=== PATIENT | female | born 1965 | race Caucasian/White ===

== ENCOUNTER 2020-11-05 02:02 | Inpatient (IN) | payer MEDICARE, OTHER ==
[2020-11-05] MEDS ORDERED: Acetaminophen 500 MG TAB ONE (02:29)
[2020-11-05] MEDS ORDERED: Boostrix 0.5 ML (Tdap) VIAL ONE (02:29)
[2020-11-05] MEDS ORDERED: HYDROcodone/Acetaminophen 5/325 mg Tablet PO PRN (03:37)
[2020-11-05] MEDS ORDERED: Acetaminophen 325 MG TAB PO PRN (03:37)
--- NOTE | 2020-11-05 03:51 | PDOC.HHP ---
Hospitalist HPI - History of Present Illness Painful swollen right thumb History of Present Illness: 55-year-old woman with a history of insulin-dependent diabetes was transferred from [facility] due to cellulitis and abscess of the right thumb with sepsis. Patient stated he was pricked by a sharp object on a door later developed swelling and redness of the thumb. She was in the emergency department 2 days ago but patient refused admission. Her thumb swelling and pain got worse. She presented to [facility] again and patient was transferred here for thumb abscess and cellulitis with sepsis. Patient was drowsy during my examination in the ED and could not provide much history. Patient noted to have leukocytosis with white cell count up to 21,000 with a left shift and bandemia. Her glucose was initially elevated to the 300s. Patient tachycardic and febrile with a temperature of 100.5. She meets criteria for sepsis. She is admitted for further management. Hospitalist ROS - Review of Systems Other: Except as documented, all other systems reviewed and negative. Hospitalist History - Past Medical History Endocrine: reports: Diabetes - Family History Family History: reports: diabetes mellitus - Social History Alcohol: reports: None Drugs: reports: none - Exam General Appearance: NAD General - other findings: Cachectic Eye: PERRL, anicteric sclera ENT: normocephalic atraumatic, no oropharyngeal lesions, moist mucosa Neck: supple, no JVD Heart: RRR, no murmur, normal peripheral pulses Respiratory: CTAB, no wheezes, no rales Gastrointestinal: soft, non-tender, normal bowel sounds Extremities: no cyanosis, no edema Extremities - other findings: Right thumb swollen, erythematous, abscess noted on the palmar aspect. Neurological: cranial nerve grossly intact, no focal deficits Musculoskeletal: normal tone, normal strength Psychiatric: normal affect, normal behavior, A&O x 3 Hospitalist Results - Labs Lab results: WBC:21.6. Hospitalist H&P A/P - Problem (1) Cellulitis and abscess of finger, unspecified Code(s): L03.019 - CELLULITIS OF UNSPECIFIED FINGER; L02.519 - CUTANEOUS ABSCESS OF UNSPECIFIED HAND Status: Acute (2) Type 2 diabetes mellitus with hyperglycemia Code(s): E11.65 - TYPE 2 DIABETES MELLITUS WITH HYPERGLYCEMIA Status: Acute (3) Sepsis Code(s): A41.9 - SEPSIS, UNSPECIFIED ORGANISM Status: Acute (4) Cachexia Code(s): R64 - CACHEXIA Status: Acute - Plan Plan: Admit patient to the medical floor. Sepsis protocol initiated. Continue IV hydration started in the ED. Wiill treat with IV cefepime and vancomycin. Follow blood cultures. Consult to hand trauma-Dr. Peck ordered. Manage blood sugar with Lantus insulin and insulin sliding scale. Nutritional consult
[2020-11-05 04:46] LABS: #Lymphocytes 2.6 thou/uL (1.20-3.40); #Monocytes 0.8 thou/uL (0.11-0.59); #Neutrophils 13.2 thou/uL (1.40-6.50); %Basophils 0.2 % (0.0-1.0); %Eosinophils 0.1 % (0.0-10.0); %Lymphocytes 15.4 % (21.0-51.0); %Monocytes 4.5 % (0.0-10.0); %Neutrophils 79.7 % (42.0-75.0); Hemoglobin 13.6 g/dL (12.0-16.0); Mean Corpuscular HGB CONC 32.6 g/dL (32.0-36.0); Mean Corpuscular Hemoglobin 32.1 pg (27.0-31.0); Mean Corpuscular Volume 98.3 fL (78.0-98.0); Mean Platelet Volume 6.2 fL (7.4-10.4); Platelet Count 339 thou/uL (130-400); RBC Distribution Width 12.5 % (11.5-14.5); Red Blood Cell (RBC) Count 4.24 mill/uL (4.20-5.40); White Blood Cell (WBC) Count 16.6 thou/uL (4.8-10.8)
[2020-11-05 05:06] LABS: ALT (SGPT) 31 U/L (8-55); AST (SGOT) 34 U/L (5-34); Albumin 2.6 g/dL (3.5-5.0); Alkaline Phosphatase 158 U/L (40-110); Anion Gap 12 mmol/L (10-20); BUN (Urea Nitrogen) 12 mg/dL (9.8-20.1); Bilirubin, Total 0.2 mg/dL (0.2-1.2); Calc. Creatinine Clearance 0 mL/min (70-130); Calcium 7.4 mg/dL (7.8-10.44); Carbon Dioxide 24 mmol/L (22-29); Chloride 99 mmol/L (98-107); Globulin 3.5 g/dL (2.4-3.5); Glucose 268 mg/dL (70-105); Potassium 3.6 mmol/L (3.5-5.1); Protein, Total 6.1 g/dL (6.0-8.3); Sodium 131 mmol/L (136-145)
[2020-11-05] MEDS: Sodium Chloride 0.9% 1,000 ML IV SCH ×3 (06:08→16:56)
[2020-11-05] MEDS ORDERED: Dextrose 50% Abboject 50 ML SYRINGE SLOW IVP PRN (06:29)
[2020-11-05] MEDS ORDERED: Dextrose 5% in Water 1,000 ML IV PRN (06:29)
[2020-11-05] MEDS: Insulin Regular 300 UNITS/3 ML VIAL SC PRN ×3 (06:50→22:35)
[2020-11-05] MEDS ORDERED: Iopamidol-370 76% 500 ML 1 ML ONE (08:35)
--- NOTE | 2020-11-05 09:04 | CT ---
PRELIMINARY REPORT/[facility]/EMERGENCY AFTER HOURS PROCEDURE: EXAM: CT UPPER EXT RT W CON HISTORY: PATIENT TRANSFER FROM ANOTHER FACILITY. WENT TO ED LAST WEEK FOR PAINFUL THUMB, PATIENT DID NOT WANT TO BE ADMITTED. CAME BACK TO ED TODAY WITH SWELLING IN HAND AND THUMB.. ONLY IV ACCESS WAS ON RIGHT SIDE.. STAFF UNABLE TO OBTAIN IV ACCESS ON UNAFFECTED SIDE. COMPARISON: None FINDINGS: No acute displaced fracture. No dislocation. No focal osseous destructive process. Soft tissue swelling about the base of the thumb and thenar eminence. No evidence of abscess formation IMPRESSION: 1. Soft tissue swelling about the base of the thumb and thenar eminence, may be infectious, inflamma tory or posttraumatic in etiology. 2. No evidence of abscess formation. 3. No acute osseous abnormality or focal osseous destructive process. ELECTRONICALLY SIGNED BY: Eleazar Morel MD Nov 05, 2020 3:08:07 AM AMBULATORY CARE COORDINATOR This report is intended for review by the ordering physician only, in accordance of law. If you recei ve this report in error, please call [facility] at [phone]. FINAL REPORT CT RIGHT FOREARM AND HAND WITH IV CONTRAST: I am in agreement with the preliminary report issued by [facility]. POS: AGW
[2020-11-05] MEDS ORDERED: Vancomycin HCl 500 MG in Sodium Chloride 0.9% 100 ML IVPB SCH (12:00)
[2020-11-05] MEDS ORDERED: Lidocaine 1% PF 5 ML VIAL ONE (12:06)
[2020-11-05] MEDS ORDERED: Ondansetron PF 4 MG/2 ML Vial ONE (12:06)
[2020-11-05] MEDS ORDERED: PHENYLEPHRINE-NS 100 MCG/ML 10 ML SYRINGE ONE (12:06)
[2020-11-05] MEDS ORDERED: PROPOFOL 200 MG/20 ML VIAL ONE (12:06)
[2020-11-05] MEDS ORDERED: Dexamethasone 20 MG/5 ML VIAL ONE (12:06)
[2020-11-05] MEDS: Cefepime 2 GM in Sodium Chloride 0.9% 100 ML IVPB SCH ×2 (12:20→22:36)
[2020-11-05] MEDS: Enoxaparin Sodium 30 MG/0.3 ML SYRINGE SC SCH (12:20)
[2020-11-05] MEDS: Morphine 2 MG/ML VIAL SLOW IVP PRN (12:33)
[2020-11-05 12:50] LABS: Hemoglobin A1c Greater than 14.0 % (4.0-6.0)
[2020-11-05] MEDS ORDERED: Bupivacaine 0.25% HCL 30 ML VIAL ONE (13:11)
[2020-11-05] MEDS ORDERED: Fentanyl 100 MCG/2 ML VIAL ONE (13:25)
[2020-11-05] MEDS ORDERED: Promethazine HCl 25 MG/ML VIAL IM PRN ×2 (13:40→15:32)
[2020-11-05] MEDS ORDERED: Meperidine HCl/PF 25 MG/ML VIAL SLOW IVP PRN (13:40)
[2020-11-05] MEDS ORDERED: Ondansetron HCl/PF 4 MG/2 ML Vial IVP PRN ×2 (13:40→15:32)
[2020-11-05] MEDS ORDERED: Promethazine HCl 25 MG/ML VIAL SLOW IVP PRN ×2 (13:40→15:32)
[2020-11-05] MEDS ORDERED: Lidocaine 1% (PF) 30 ML VIAL ONE (14:11)
[2020-11-05] MEDS: Vancomycin HCl 500 MG in Sodium Chloride 0.9% 100 ML IVPB SCH ×2 (15:13→15:23)
[2020-11-05 16:09] LABS: SARS-CoV-2 MS2 Positive; SARS-CoV-2 N Gene Negative; SARS-CoV-2 S Gene Negative; SARS-CoV-2 by NAA Not Detected (NotDetected); SARS-CoV-2 orf1ab Negative
--- NOTE | 2020-11-05 19:37 | CON ---
DATE OF CONSULTATION: 11/05/2020 HISTORY OF PRESENT ILLNESS: The patient is a 55-year-old right-hand dominant female, who I was asked to see for ongoing pain, swelling, and redness in her right hand. She states that the symptoms began over a week ago, she suffered a small injury or laceration on the right thumb. [facility] I was asked to see the patient today for the first time. She denied any fevers, however, reports significant pain and numbness and tingling in the fingers. She also had pain in the right thumb, also in the right small finger, A1 heriberto region in the right wrist. PHYSICAL EXAMINATION: General: The patient appeared to be in bed. She was awake, alert, and oriented x3. She is a very skinny lady and looks somewhat emaciated. EXTREMITIES: Right upper extremity, there was a wet gangrene over the tip of the right thumb with fluctuance and induration. There was erythema extending over the right thumb into the right wrist and forearm area. She was tender to palpation over the right thumb, especially over the A1 heriberto region in the right small finger. She displayed carpal tunnel symptoms as well. IMAGING STUDIES: CT scan that was performed by the ED staff was reviewed by me. ASSESSMENT: Wet gangrene of the right thumb with associated deep space infection involving the right hand and wrist, potentially a horseshoe abscess involving the right small finger in the deep space of Parona. PLAN: I recommended OR for amputation of the right thumb at the level of the IP joint; incision and drainage; and washout and debridement of the right hand; as well as a carpal tunnel release. I discussed all risks and goals associated with the surgery with the patient. The goal of the surgery is to clear the patient's infection, so that she may get better. The risks associated with the surgery include, but are not limited to possible nerve injury, blood vessel injury, tendon injury, need for further surgery, chronic pain, etc. She voiced understanding and agreed to proceed with a right thumb amputation, right carpal tunnel release, incision and drainage, and washout and debridement of the right hand. The patient had already been receiving antibiotics by the medicine team. She may continue the antibiotics as scheduled, broad-spectrum antibiotics postoperatively, and Hand Surgery will follow her closely as well following her surgery today. Job ID: [id number]
[2020-11-05] MEDS: Piperacillin/Tazobactam 3.375 GM in Sodium Chloride 0.9% 100 ML IVPB SCH (20:07)
[2020-11-05] MEDS ORDERED: FLU VACC QS2020-21(6MOS UP)/PF 60 MCG/0.5 ML SYRINGE IM ONE (21:00)
[2020-11-06] MEDS: HYDROcodone/Acetaminophen 5/325 mg Tablet PO PRN ×3 (00:36→20:56)
[2020-11-06] MEDS: Piperacillin/Tazobactam 3.375 GM in Sodium Chloride 0.9% 100 ML IVPB SCH ×5 (00:53→23:33)
[2020-11-06] MEDS: Vancomycin HCl 500 MG in Sodium Chloride 0.9% 100 ML IVPB SCH (02:32)
[2020-11-06 05:57] LABS: Anion Gap 11 mmol/L (10-20); BUN (Urea Nitrogen) 10 mg/dL (9.8-20.1); Calc. Creatinine Clearance 62 mL/min (70-130); Calcium 7.1 mg/dL (7.8-10.44); Carbon Dioxide 25 mmol/L (22-29); Chloride 102 mmol/L (98-107); Glucose 207 mg/dL (70-105); Sodium 135 mmol/L (136-145)
[2020-11-06 05:58] LABS: Band 30 % (5-11); Hemoglobin 11.1 g/dL (12.0-16.0); Hypochromia SLIGHT = 6-15 cells (100X) (0-5/hpf); Lymphocytes 8 % (21-51); MDiff Complete? YES; Mean Corpuscular HGB CONC 33.4 g/dL (32.0-36.0); Mean Corpuscular Hemoglobin 33.1 pg (27.0-31.0); Mean Corpuscular Volume 99.2 fL (78.0-98.0); Mean Platelet Volume 6.1 fL (7.4-10.4); Monocytes 5 % (0-10); Neutrophil 56 % (42-75); Platelet Count 429 thou/uL (130-400); Platelet Morphology Comment Appears Increased; RBC Distribution Width 12.4 % (11.5-14.5); Reactive Lymphocytes 1 % (0-10); Red Blood Cell (RBC) Count 3.35 mill/uL (4.20-5.40); White Blood Cell (WBC) Count 22.2 thou/uL (4.8-10.8)
[2020-11-06 06:01] LABS: Potassium 2.9 mmol/L (3.5-5.1)
--- NOTE | 2020-11-06 06:18 | OP ---
DATE OF PROCEDURE: 11/05/2020 PREOPERATIVE DIAGNOSES: 1. Wet gangrene, right thumb with associated deep space infection. 2. Carpal tunnel syndrome, right hand. POSTOPERATIVE DIAGNOSES: 1. Wet gangrene, right thumb with associated deep space infection. 2. Carpal tunnel syndrome, right hand. PROCEDURE PERFORMED: 1. Amputation, right thumb at the interphalangeal joint. 2. Right open carpal tunnel release. 3. Incision and drainage, washout, and debridement of the right hand and debridement of soft tissue and flexor tenosynovium and flexor tendon. ANESTHESIA: Local and general. TOURNIQUET TIME: 78 minutes. ESTIMATED BLOOD LOSS: Less than 10 mL. FINDINGS: There was wet gangrene in the distal portion of the right thumb. There was thickened tenosynovium involving the flexor tendons within the carpal tunnel. There was pus appreciated within the IP joint of the right thumb and necrotic bone appreciated as well involving mainly the distal phalanx of the right thumb. There was murky fluid appreciated within the flexor tendon sheath of the right small finger. IMPLANTS: Guevara drain and two blue vessel loop drains. SPECIMEN: Culture and sensitivities. CONDITION: Stable. DESCRIPTION OF PROCEDURE: The patient was already given antibiotics by the Medicine team as scheduled. She was brought to the operating room, placed in supine on the operating room table. Time-out was performed. General anesthesia was induced by the anesthesia team. A right upper extremity tourniquet was applied. The right upper extremity was prepped and draped under sterile aseptic conditions. A second time-out was performed. The right upper extremity was exsanguinated by gravity and the tourniquet was inflated to 250 mmHg. Local anesthetic was administered as a digital block to the right thumb and right small finger and skin underlying the right carpal canal and the right volar wrist in the area of the predicted skin incision. My attention was directed to the right thumb first. There was significant wet gangrene and discoloration with black lozano tissue appreciated over the tip of the right thumb and a fishmouth incision was made. Pus was immediately encountered in the soft tissue space and the IP joint space. This was sent for culture and sensitivities and Gram stain. The IP joint was disarticulated and the distal phalanx along with the surrounding soft tissues were sent for specimen. They were sent for acid-fast, fungal, Gram stain, aerobic, anaerobic specimen. There was pus encountered within the thenar space and this was incised and drained as well. I made a small incision in the skin overlying the A1 heriberto of the right small finger. I entered the flexor tendon sheath of right small finger, there was small amount of murky fluid, but no cheryl pus. I did carpal tunnel release. Care was taken throughout the entirety of the case to avoid injury to the nerves, tendons, blood vessels; however, it should be noted that there was significant purulent drainage noted around the digital neurovascular structures of right thumb. I extended carpal tunnel incision in a Pedro's fashion across flexion crease there was some murky fluid. No cheryl pus. There was significant thickening of the tenosynovium overlying flexor tendons, which is debrided. I did a carpal tunnel release and the retinaculum and transverse carpal ligament were released in full thickness. The median nerve appeared to be hyperemic. I irrigated all wounds thoroughly using 3 L of sterile saline and closed over a Speonk drain and vessel loop drains within the flexor tendon sheaths of the right thumb and right small finger. The tourniquet was deflated. All fingers including the right thumb stump returned to good capillary refill. The skin was loosely closed using 4-0 nylon. Xeroform was applied over the wounds along with bulky dressing. The patient was extubated and transported back to recovery area in stable condition. She will remain admitted to the Internal Medicine service. Continue with broad-spectrum coverage, antibiotic coverage of Zosyn and vancomycin would be appropriate, and we can tailor the antibiotics according to the culture results. Hand Surgery will follow the patient closely. I will plan on removing the drains at least 24 hours postop and we will proceed from there. Job ID: [id number]
[2020-11-06] MEDS: Insulin Regular 300 UNITS/3 ML VIAL SC PRN ×4 (06:24→20:51)
[2020-11-06] MEDS: Sodium Chloride 0.9% 1,000 ML IV SCH ×4 (07:37→23:36)
[2020-11-06] MEDS: Potassium Chloride 20 MEQ in Premix Bag 1 BAG IVPB SCH ×2 (07:37→09:12)
[2020-11-06] MEDS: Enoxaparin Sodium 30 MG/0.3 ML SYRINGE SC SCH (07:38)
[2020-11-06] MEDS ORDERED: Insulin Glargine 15 UNITS in Pre-Filled Syringe 1 EACH SC SCH (08:45)
[2020-11-06] MEDS: metFORMIN 500 MG TAB PO SCH ×2 (09:11→20:51)
[2020-11-06] MEDS: Lisinopril 2.5 MG TAB PO SCH (09:14)
[2020-11-06 11:12] VITALS: BMI 13.3
[2020-11-06] MEDS ORDERED: Iopamidol-370 76% 500 ML 1 ML ONE (13:35)
--- NOTE | 2020-11-06 14:36 | CON ---
DATE OF CONSULTATION: 11/06/2020 REASON FOR CONSULTATION: Right thumb infection. HISTORY OF PRESENT ILLNESS: A 55-year-old with history of type 2 diabetes, bipolar disorder, who used to live with her , but they are in the middle of separation process and she is temporarily with her sister in [place], I believe, and has been losing quite a bit of weight. Reportedly her baseline weight was 126 pounds, now she is down to 66 pounds in the course of a few months. She sustained an injury to the right thumb while cleaning a car apparently by closing the door over her finger a few days ago. She was therefore seen 3 days before in the emergency room and left against medical advice prior to receiving antimicrobials and then she developed worsening inflammatory changes and came back and was admitted this time with necrotizing features. Dr. Peck did a partial amputation at the interphalangeal joint. I do not have yet the pathology report. The patient denies any headaches. She is kind of tearful throughout the exam. No sore throat, odynophagia, or dysphagia. No dyspnea or chest pain. No cough. No abdominal pain. Voiding without difficulty. No diarrhea. No joint symptoms. PAST MEDICAL HISTORY: Type 2 diabetes; marked weight loss within the past few months, she lost half of her weight, unexplained weight loss; depression; bipolar disorder. ALLERGIES: NONE. MEDICATIONS: List at the moment, she is on, 1. Electrolyte infusion. 2. Glucotrol. 3. [place]. 4. Insulin. 5. Glucophage. 6. Zosyn. FAMILY HISTORY: Noncontributory. PHYSICAL EXAMINATION: VITAL SIGNS: T-max 99.9, blood pressure 97/63, heart rate 92, respirations 20, O2 saturation 98% on room air. GENERAL: She appears almost cachectic. She has some periorbital edema. No skin lesions outside the thumb. The thumb is wrapped around a very bulky dressing, which I did not remove. There are no pictures from the injury in record. No lymphadenopathy. HEENT: Ocular movements are conjugate. Pupils are reactive, about 2 mm. Oral cavity with a few missing teeth. The tongue papillae are markedly atrophic. NECK: Supple. No jugular vein distention. LUNGS: Symmetric air entry. No crackles or wheezing. HEART: S1 and S2. Regular rate without murmurs. ABDOMEN: Soft, not distended or tender. No ascites. No bladder distention. EXTREMITIES: She has edema in the subcutaneous tissues in lower extremities. She moves all extremities equally. Cognitive function appears to be intact. LABORATORY DATA: White cell count 16,000, up to 22,000; hemoglobin 11; platelets 429; 30% bands. Sodium 135, creatinine 0.47. On admission, liver functions were normal except for alkaline phosphatase, probably bone derived. Albumin 2.6, total protein 6.1, and SARS-CoV2 PCR was negative. IMAGING: We have a CT of upper extremity with soft tissue swelling about the base of the thumb and thenar eminence, possibly infectious. No abscess formation. The surgical report was reviewed, Dr. Peck' report, and basically white gangrene in distal portion of the right thumb, thickened tenosynovium and flexor tendons within the carpal tunnel, pus appreciated within the IP joint, and right thumb necrotic bone appreciated as well, involving the distal phalanx of the right thumb. ASSESSMENT AND PLAN: Type 2 diabetes with marked weight loss, which is unexplained; history of depression, severe; thumb injury with inflammatory process with necrotizing features due to group B Streptococcus. At this point, we will switch her to Rocephin and then transition to oral treatment according to the results of the pathology margin report. We will submit assays for micronutrients and various vitamins in view of obvious malnutrition. Check CT chest, abdomen, and pelvis in view of the marked weight loss, which is unexplained. May need work up for malabsorption. Job ID: [id number] [facility]
--- NOTE | 2020-11-06 15:23 | PDOC.HOSPP ---
- Subjective Encounter Date: 11/06/20 Encounter Time: 10:30 Subjective: Patient up in bed no complaints - Objective Vital Signs & Weight: Vital Signs (12 hours) Temp Pulse Resp BP BP Pulse Ox 11/06/20 11:51 98.6 F 92 20 97/63 11/06/20 09:14 90 11/06/20 08:00 98.4 F 90 20 111/75 98 11/06/20 04:30 99 F 80 16 102/68 97 Weight Admit Weight 66 lb 0.448 oz Weight 66 lb 0.455 oz I&O: 11/05/20 11/06/20 11/07/20 06:59 06:59 06:59 Intake Total 1734 Output Total 350 Balance 1384 Result Diagrams: 11/06/20 05:27 11/06/20 05:27 Additional Labs: Accuchecks 11/06/20 11/05/20 11/05/20 06:03 22:18 16:59 POC Glucose 296 H 404 H 226 H 11/05/20 06:00 POC Glucose 267 H Hospitalist ROS - Review of Systems Respiratory: denies: cough, dry, shortness of breath, hemoptysis, SOB with excertion, pleuritic pain, sputum, wheezing, other Cardiovascular: denies: chest pain, palpitations, orthopnea, paroxysmal noc. dyspnea, edema, light headedness, other Gastrointestinal: denies: nausea, vomiting, abdominal pain, diarrhea, constipation, melena, hematochezia, other - Medication Medications: Active Medications Generic Name Dose Route Start Last Admin Trade Name Freq PRN Reason Stop Dose Admin Hydrocodone Bitart/Acetaminophen 1 tab 11/05/20 16:35 11/06/20 11:16 Hydrocodone/Acetaminophen 5/325 Mg Tablet PO 1 tab Q6H PRN Administration Moderate Pain (4-6) Enoxaparin Sodium 30 mg 11/05/20 09:00 11/06/20 07:38 Enoxaparin Sodium 30 Mg/0.3 Ml Syringe SC 30 mg 0900 PRIMITIVO Administration Sodium Chloride 1,000 mls @ 126 mls/hr 11/05/20 03:45 11/06/20 10:01 Normal Saline 0.9% IV Not Given .[id number] PRIMITIVO Piperacillin Sod/Tazobactam 100 mls @ 200 mls/hr 11/05/20 18:00 11/06/20 11:16 Sod 3.375 gm/ Sodium Chloride IVPB 100 mls Q6HR PRIMITIVO Administration Insulin Human Regular 0 units 11/05/20 06:29 11/06/20 11:12 Insulin Regular 300 Units/3 Ml Vial SC 6 unit .MODERATE SLIDING SC PRN Administration Moderate Correctional Scale Lisinopril 2.5 mg 11/06/20 09:00 11/06/20 09:14 Lisinopril 2.5 Mg Tab PO Not Given DAILY PRIMITIVO Metformin HCl 500 mg 11/06/20 09:00 11/06/20 09:11 Metformin 500 Mg Tab PO 500 mg BID PRMIITIVO Administration Morphine Sulfate 2 mg 11/05/20 03:44 11/05/20 12:33 Morphine 2 Mg/Ml Vial SLOW IVP 2 mg Q4H PRN Administration Pain - Exam Neck: negative: supple, symmetric, no JVD, no thyromegaly, no lymphadenopathy, no carotid bruit, JVD Heart: negative: RRR, no murmur, no gallops, no rubs, normal peripheral pulses, irregular, diminshed peripheral pulses, murmur present, II/IV, III/IV Respiratory: negative: CTAB, no wheezes, no rales, no ronchi, normal chest expansion, no tachypnea, normal percussion, rales, rhonchi, tachypneic, wheezes Gastrointestinal: negative: soft, non-tender, non-distended, normal bowel sounds, no palpable masses, no hepatomegaly, no splenomegaly, no bruit, no guarding, no rigidity, tender to palpation, distended, diminished bowl sounds, voluntary guarding Hosp A/P (1) Cachexia Code(s): R64 - CACHEXIA Status: Acute (2) Cellulitis and abscess of finger, unspecified Code(s): L03.019 - CELLULITIS OF UNSPECIFIED FINGER; L02.519 - CUTANEOUS ABSCESS OF UNSPECIFIED HAND Status: Acute (3) Sepsis Code(s): A41.9 - SEPSIS, UNSPECIFIED ORGANISM Status: Acute (4) Type 2 diabetes mellitus with hyperglycemia Code(s): E11.65 - TYPE 2 DIABETES MELLITUS WITH HYPERGLYCEMIA Status: Acute - Plan Patient hemoglobin A1c significantly elevated. We will start her on some Lantus. We will stop vancomycin microbiology indicated Streptococcus agalactiae. We will consult infectious disease. Please measure consult for pl acement. Patient appears severely cachectic.
--- NOTE | 2020-11-06 16:31 | CT ---
Exam: Chest CT with contrast Abdomen CT with contrast Pelvic CT with contrast HISTORY: Unexplained 60 pound weight loss. Correlation: None COMPARISON: None FINDINGS: Chest CT: Mediastinum: No mass, lymphadenopathy or hematoma. Aorta: Normal caliber. No periaortic fat stranding. Heart: Normal heart size. No significant pericardial fluid Trachea and central bronchi: Patent Pleural spaces: Moderate bilateral effusions. Right lung: Consolidation adjacent to pleural effusion likely represents atelectasis. Left lung:Consolidation adjacent pleural effusion likely represent atelectasis. Pneumothorax: None Abdomen CT: Gallbladder: Unremarkable Portal vein: Patent Liver: Appropriate enhancement. Spleen: Appropriate enhancement Pancreas: Appropriate enhancement Adrenal glands: Appropriate enhancement Lymphadenopathy: No gastrohepatic, retrocrural or periportal lymphadenopathy Kidneys: Symmetric enhancement. No obstructive uropathy. Mesentery: Decreased visceral fat limits evaluation for inflammatory change. No mesenteric mass, lymp hadenopathy, free air or fluid Alimentary canal: Gastric mucosa and duodenum have a normal appearance. Multiple normal caliber contr ast-filled small bowel loops. Ileocecal junction is limited in evaluation. There is incomplete contrast opacification of the colon. There is a copious moderate fecal material, limiting evaluation of the colonic process.. Fecal material does raise a positive component of constipation. Suggestion of a normal caliber air-filled appendix. Pelvis CT: Uterus and adnexal structures are grossly unremarkable. Moderately distended urinary bladder. No muco maribeth abnormality. Presacral fat is preserved. No pelvic mass, adenopathy, free air or free fluid Osseous structures:No lytic or blastic lesions in the osseous structures Soft tissues: There is evidence of extensive soft tissue edema. IMPRESSION: 1. No obvious acute abnormality in the abdomen or pelvis. There is no CT evidence explain the patient 's unexplained weight loss. 2. There is evidence of copious fecal material. Correlate for constipation. Limited evaluation of the colon mucosa. 3. Bilateral pleural effusion with adjacent consolidation likely representing dependent atelectasis. Correlate clinically for aspiration or pneumonia. 3. Soft tissue edema. Correlate for third spacing. Low albumin, possibly due to poor nutritional stat us.
--- NOTE | 2020-11-06 17:13 | PQF ---
CLINICAL DOCUMENTATION CLARIFICATION FORM: Dear Dr. German Meadows Date: 11/06/2020 1700, 1008 Please exercise your independent, professional judgment in responding to the clarification form. Clinical indicators are provided on the bottom of this form [x ] Severe Protein Calorie Malnutrition [ ] Moderate Protein Calorie Malnutrition [ ] Cachexia [ ] Unable to determine In addition, please specify: Present on Admission (POA): [ x ] Yes [ ] No [ ] Unable to determine For continuity of documentation, please document condition throughout progress notes and discharge summary. Thank You. To be completed by CDI/Coding staff for physician review: CLINICAL INDICATORS - SIGNS / SYMPTOMS / LABS / RESULTS AND LOCATION IN MR Nutrition diagnosis Malnutrition Related to poor appetite / depressed/ sepsis as evidenced by meeting criteria for severe acute (on chronic) malnutrition: likely eating < 75% needs for > 7 days prior to admission, 44% weight loss from 118 lbs, severe muscle tissue wasting at all sites and severe adipose tissue wasting at all sites; BMI 13.3 ( RD/ 11/06) Pt appears severely cachectic ( Dori) 11/06 Type 2 Diabetes with marked weight loss which is unexplained ( fiordaliza/ 11/06) RISK FACTORS / RESULTS AND LOCATION IN MR Sepsis, cachexia, cellulitis ( [place]/ PN) 11/06 TREATMENT / RESULTS AND LOCATION IN MR Dietary consult (11/06) , Recommend Ensure Enlive TID () Moderate Malnutrition (in acute illness) Energy Intake: <75% of estimated energy requirement for > 7 days Weight Loss: 1-2%/1 week; 5%/ 1 month; 7.5%/3 months Other: mild body fat loss; mild muscle mass loss; mild fluid accumulation; Severe Malnutrition (in acute illness) Energy Intake: _ 50% of estimated energy requirement for _ 5 days Weight Loss: >2%/1 week; >5%/1 month; >7.5%/3 months Other: moderate body fat loss; moderate muscle mass loss; moderate- severe fluid accumulation; 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 CDS Signature: Elenita Cerda RN Phone #: [phone] Date: 11/06/2020 This is a permanent part of the Medical Record [facility]
[2020-11-06] MEDS: Morphine 2 MG/ML VIAL SLOW IVP PRN (18:27)
[2020-11-07 01:26] LABS: Vancomycin, Trough Less than 1.1 ug/mL
[2020-11-07] MEDS: Piperacillin/Tazobactam 3.375 GM in Sodium Chloride 0.9% 100 ML IVPB SCH (05:47)
[2020-11-07] MEDS: HYDROcodone/Acetaminophen 5/325 mg Tablet PO PRN ×3 (05:52→19:51)
[2020-11-07] MEDS: Insulin Regular 300 UNITS/3 ML VIAL SC PRN ×4 (05:53→21:31)
[2020-11-07] MEDS: Enoxaparin Sodium 30 MG/0.3 ML SYRINGE SC SCH (07:55)
[2020-11-07] MEDS: metFORMIN 500 MG TAB PO SCH ×2 (07:55→21:31)
[2020-11-07] MEDS: Lisinopril 2.5 MG TAB PO SCH (07:56)
--- NOTE | 2020-11-07 08:38 | PRG ---
DATE OF SERVICE: 11/06/2020 SUBJECTIVE: Patient is resting comfortably in bed. She is postoperative day #1 status post amputation of right thumb at the IP joint and I and D of right hand. Her pain is well controlled. She denies any fevers. She states that her pain is improved compared to her preoperative symptoms. PHYSICAL EXAMINATION: GENERAL: The patient is awake and alert and oriented to person, place, and time. EXTREMITIES: Right upper extremity: There is no longer any erythema extending up the forearm, in the right hand or wrist area. There is some localized erythema in the distal stump of the right thumb. The suture line is intact with nylon sutures and there are [address], 2 blue vessel loops and one Arnett drain. There is no purulent drainage noted. There is packing in place over the distal stump of the right thumb. All fingers are well perfused and vascularly intact and flexor and extensor tendon functions are grossly intact. LABORATORY DATA: Culture and sensitivities are pending and shows Strep agalactiae and Alesia albicans with sensitivities pending. ASSESSMENT AND PLAN: Postoperative day #1 status post right thumb amputation at the IP joint; and incision, drainage and washout, right hand; carpal tunnel release. Packing was removed from the right thumb today. I will keep the drains in place for another 24 hours. She will begin hand soaks 3 to 4 times a day for 30 minute intervals and then dressing changes can be performed by the nursing staff after each hand soak is performed. Internal Medicine service may adjust the antibiotics accordingly for good coverage of the Alesia and Streptococcus agalactiae group B. I will see the patient again tomorrow and we will consider removing the drains at that time. The patient should remain admitted to the hospital and continue with her IV antibiotics and observation for now. Job ID: [id number]
[2020-11-07] MEDS: Insulin Glargine 10 UNITS in Pre-Filled Syringe 1 EACH SC SCH (08:46)
[2020-11-07] MEDS ORDERED: Polyethylene Glycol 3350 17 GM Packet PO PRN (10:14)
[2020-11-07] MEDS ORDERED: Bisacodyl 5 MG TAB PO SCH (10:15)
[2020-11-07 11:10] LABS: Anion Gap 11 mmol/L (10-20); BUN (Urea Nitrogen) 11 mg/dL (9.8-20.1); Calc. Creatinine Clearance 61 mL/min (70-130); Calcium 7.5 mg/dL (7.8-10.44); Carbon Dioxide 25 mmol/L (22-29); Chloride 100 mmol/L (98-107); Glucose 389 mg/dL (70-105); Magnesium 1.5 mg/dL (1.6-2.6); Potassium 3.6 mmol/L (3.5-5.1)
[2020-11-07 11:27] LABS: Phosphorus 1.2 mg/dL (2.3-4.7)
[2020-11-07 11:37] LABS: Sodium 132 mmol/L (136-145)
[2020-11-07] MEDS: cefTRIAXone\\ROCEPHIN 2 GM in Sodium Chloride 0.9% 100 ML IVPB SCH (11:39)
[2020-11-07] MEDS ORDERED: Potassium Phosphate 9 MMOL in Sodium Chloride 0.9% 100 ML IVPB SCH (14:00)
--- NOTE | 2020-11-07 14:01 | PDOC.HOSPP ---
- Subjective Encounter Date: 11/07/20 Encounter Time: 11:20 Subjective: pt up in bed complains of pain to her right hand - Objective Vital Signs & Weight: Vital Signs (12 hours) Temp Pulse Resp BP BP Pulse Ox 11/07/20 12:09 99.0 F 95 20 103/67 95 11/07/20 07:58 99.3 F 99 20 106/67 96 11/07/20 07:56 90 11/07/20 03:25 98.3 F 90 16 100/67 Weight Admit Weight 66 lb 0.448 oz Weight 66 lb 0.455 oz I&O: 11/06/20 11/07/20 11/08/20 06:59 06:59 06:59 Intake Total 1734 Output Total 350 Balance 1384 Result Diagrams: 11/06/20 05:27 11/07/20 10:24 Additional Labs: Accuchecks 11/07/20 11/07/20 11/06/20 11:11 05:50 20:42 POC Glucose 357 H 399 H 318 H 11/06/20 11/06/20 16:49 11:06 POC Glucose 228 H 298 H Hospitalist ROS - Review of Systems Respiratory: denies: cough, dry, shortness of breath, hemoptysis, SOB with excertion, pleuritic pain, sputum, wheezing, other Cardiovascular: denies: chest pain, palpitations, orthopnea, paroxysmal noc. dyspnea, edema, light headedness, other Gastrointestinal: denies: nausea, vomiting, abdominal pain, diarrhea, constipation, melena, hematochezia, other - Medication Medications: Active Medications Generic Name Dose Route Start Last Admin Trade Name Cely PRN Reason Stop Dose Admin Hydrocodone Bitart/Acetaminophen 1 tab 11/05/20 16:35 11/07/20 11:39 Hydrocodone/Acetaminophen 5/325 Mg Tablet PO 1 tab Q6H PRN Administration Moderate Pain (4-6) Enoxaparin Sodium 30 mg 11/05/20 09:00 11/07/20 07:55 Enoxaparin Sodium 30 Mg/0.3 Ml Syringe SC 30 mg 0900 PRIMITIVO Administration Insulin Glargine 10 units/ 0.1 mls @ 0 mls/hr 11/07/20 09:00 11/07/20 08:46 Miscellaneous Medication SC 0.1 mls QAM PRIMITIVO Administration Ceftriaxone Sodium 2 gm/ 100 mls @ 200 mls/hr 11/07/20 11:00 11/07/20 11:39 Sodium Chloride IVPB 100 mls 1100 [facility] Administration Insulin Human Regular 0 units 11/05/20 06:29 11/07/20 11:33 Insulin Regular 300 Units/3 Ml Vial SC 10 unit .MODERATE SLIDING SC PRN Administration Moderate Correctional Scale Lisinopril 2.5 mg 11/06/20 09:00 11/07/20 07:56 Lisinopril 2.5 Mg Tab PO Not Given DAILY [facility] Metformin HCl 500 mg 11/06/20 09:00 11/07/20 07:55 Metformin 500 Mg Tab PO 500 mg BID PRIMITIVO Administration Morphine Sulfate 2 mg 11/05/20 03:44 11/06/20 18:27 Morphine 2 Mg/Ml Vial SLOW IVP 2 mg Q4H PRN Administration Pain - Exam Heart: negative: RRR, no murmur, no gallops, no rubs, normal peripheral pulses, irregular, diminshed peripheral pulses, murmur present, II/IV, III/IV Respiratory: negative: CTAB, no wheezes, no rales, no ronchi, normal chest expansion, no tachypnea, normal percussion, rales, rhonchi, tachypneic, wheezes Gastrointestinal: negative: soft, non-tender, non-distended, normal bowel sounds, no palpable masses, no hepatomegaly, no splenomegaly, no bruit, no guarding, no rigidity, tender to palpation, distended, diminished bowl sounds, voluntary guarding Extremities: 1+ LE edema Hosp A/P (1) Cachexia Code(s): R64 - CACHEXIA Status: Acute (2) Cellulitis and abscess of finger, unspecified Code(s): L03.019 - CELLULITIS OF UNSPECIFIED FINGER; L02.519 - CUTANEOUS ABSCESS OF UNSPECIFIED HAND Status: Acute (3) Sepsis Code(s): A41.9 - SEPSIS, UNSPECIFIED ORGANISM Status: Acute (4) Type 2 diabetes mellitus with hyperglycemia Code(s): E11.65 - TYPE 2 DIABETES MELLITUS WITH HYPERGLYCEMIA Status: Acute - Plan Patient hemoglobin A1c significantly elevated. We will start her on some Lantus. We will stop vancomycin microbiology indicated Streptococcus agalact iae. We will consult infectious disease. Please measure consult for placement. Patient appears severely cachectic. 11/07 we will increase patient's oral antidiabetic medications. Change IV antibiotic ceftriaxone per IDs recommendation. Patient's electrolytes will be replaced. Other studies ordered pending. Patient most likely will go to group home facility for now.
[2020-11-07] MEDS: Morphine 2 MG/ML VIAL SLOW IVP PRN (14:41)
[2020-11-07] MEDS: glipiZIDE 5 MG TAB PO SCH (16:17)
[2020-11-07] MEDS ORDERED: diphenhydrAMINE 25 MG CAP PO PRN (23:01)
[2020-11-07] MEDS ORDERED: diphenhydrAMINE 50 MG/ML VIAL IVP SCH (23:30)
[2020-11-08] MEDS: HYDROcodone/Acetaminophen 5/325 mg Tablet PO PRN ×3 (00:56→15:09)
--- NOTE | 2020-11-08 08:11 | PRG ---
DATE OF SERVICE: 11/07/2020 SUBJECTIVE: The patient is seen today. Postoperative day #2. Resting comfortably in bed. Pain is well controlled. She denies any fevers. She had been performing her hand soaks 3 to 4 times for 30-minute intervals as directed. She continues to report pain, however, in her right hand. PHYSICAL EXAMINATION: GENERAL: Awake, alert, oriented to person, place, and time. EXTREMITIES: Right upper extremity, there is a fair amount of erythema extending over the right thumb stump as well as tenderness in the right palm. Incisions and suture line appear to be maintained and intact, and there are two blue vessel loop drains as well as a Guevara drain. There is some necrotic tissue over the volar right thumb stump. There is mild amount of drainage appreciated from this area as well. She is tender to palpation over the left palm. All fingers appear to be neurovascularly intact, and flexor and extensor tendon functions appear to be grossly intact, but limited secondary to pain, minimal to no, with erythema extending over the left wrist. This is improved compared to preoperative exam. Culture and sensitivities show Streptococcus agalactiae, group B strep as well as Alesia. The patient is on IV antibiotics. ASSESSMENT AND PLAN: Postoperative day #2, status post amputation of right thumb at the IP joint as well as incision, drainage, debridement, and carpal tunnel release, right hand. It seems that the patient's white cell count is climbing as per her recent CBC. She is tender to palpation of the left palm, therefore, recommended repeat washout, incision, drainage, and possible amputation of the proximal phalanx of the left thumb. I discussed all risks and goals associated with the surgery with the patient. She voiced understanding and agreed to proceed with repeat incision, drainage, and washout of right hand as well as further amputation of right thumb, proximal phalanx. I informed the patient that this would leave her with a four finger hand. She voiced understanding of this and agrees to proceed. We will plan on surgery for tomorrow. She will be n.p.o. past midnight tonight and the surgery will be performed on 11/08/2020, early afternoon. Hand Surgery will continue to follow the patient closely. Consider ID consultation. The patient should remain admitted to the Medicine Service. Job ID: [id number]
[2020-11-08] MEDS: metFORMIN 500 MG TAB PO SCH ×2 (08:41→20:51)
[2020-11-08] MEDS: Lisinopril 2.5 MG TAB PO SCH (08:43)
[2020-11-08] MEDS: Polyethylene Glycol 3350 17 GM Packet PO SCH (08:44)
[2020-11-08] MEDS: Enoxaparin Sodium 30 MG/0.3 ML SYRINGE SC SCH (08:47)
[2020-11-08] MEDS: glipiZIDE 5 MG TAB PO SCH ×2 (08:47→17:33)
[2020-11-08] MEDS: Insulin Glargine 10 UNITS in Pre-Filled Syringe 1 EACH SC SCH (08:48)
[2020-11-08 09:13] LABS: Anion Gap 9 mmol/L (10-20); BUN (Urea Nitrogen) 9 mg/dL (9.8-20.1); Calc. Creatinine Clearance 73 mL/min (70-130); Calcium 7.3 mg/dL (7.8-10.44); Carbon Dioxide 29 mmol/L (22-29); Chloride 100 mmol/L (98-107); Glucose 175 mg/dL (70-105); Potassium 3.3 mmol/L (3.5-5.1); Sodium 135 mmol/L (136-145)
[2020-11-08 10:41] LABS: #Basophils 0.1 thou/uL (0.0-0.2); #Eosinphils 0.1 thou/uL (0.0-0.7); #Lymphocytes 3.5 thou/uL (1.20-3.40); #Monocytes 0.5 thou/uL (0.11-0.59); #Neutrophils 4.7 thou/uL (1.40-6.50); %Basophils 0.6 % (0.0-1.0); %Eosinophils 0.7 % (0.0-10.0); %Lymphocytes 39.7 % (21.0-51.0); %Monocytes 5.7 % (0.0-10.0); %Neutrophils 53.3 % (42.0-75.0); Hemoglobin 12.2 g/dL (12.0-16.0); Mean Corpuscular HGB CONC 33.8 g/dL (32.0-36.0); Mean Platelet Volume 5.8 fL (7.4-10.4); Platelet Count 496 thou/uL (130-400); RBC Distribution Width 12.3 % (11.5-14.5); Red Blood Cell (RBC) Count 3.59 mill/uL (4.20-5.40); White Blood Cell (WBC) Count 8.8 thou/uL (4.8-10.8)
[2020-11-08] MEDS: cefTRIAXone\\ROCEPHIN 2 GM in Sodium Chloride 0.9% 100 ML IVPB SCH (11:11)
[2020-11-08 11:36] LABS: HIV (1/2) Antibody/Antigen Non-Reactive (NonReactive)
[2020-11-08 11:40] LABS: Fungus Stain Final report (.); Fungus Stain Result 1 Yeast observed (.)
[2020-11-08 11:40] LABS: Fungus Stain Final report (.); Fungus Stain Result 1 Yeast observed (.)
[2020-11-08 11:45] LABS: ALT (SGPT) 20 U/L (8-55); AST (SGOT) 28 U/L (5-34); Albumin 2.2 g/dL (3.5-5.0); Alkaline Phosphatase 114 U/L (40-110); Anion Gap 12 mmol/L (10-20); BUN (Urea Nitrogen) 8 mg/dL (9.8-20.1); Bilirubin, Total 0.2 mg/dL (0.2-1.2); Calc. Creatinine Clearance 73 mL/min (70-130); Calcium 7.5 mg/dL (7.8-10.44); Carbon Dioxide 25 mmol/L (22-29); Chloride 102 mmol/L (98-107); Globulin 3.7 g/dL (2.4-3.5); Glucose 169 mg/dL (70-105); Phosphorus 2.3 mg/dL (2.3-4.7); Potassium 3.7 mmol/L (3.5-5.1); Protein, Total 5.9 g/dL (6.0-8.3); Sodium 135 mmol/L (136-145)
[2020-11-08] MEDS ORDERED: Lidocaine 1% (PF) 30 ML VIAL ONE (12:53)
[2020-11-08] MEDS ORDERED: Bupivacaine 0.25% HCL 30 ML VIAL ONE (12:53)
[2020-11-08] MEDS ORDERED: Fentanyl 100 MCG/2 ML VIAL ONE (12:58)
--- NOTE | 2020-11-08 16:27 | PDOC.HOSPP ---
- Subjective Encounter Date: 11/08/20 Encounter Time: 16:25 Subjective: Patient up in bed denies any complaints. - Objective Vital Signs & Weight: Vital Signs (12 hours) Temp Pulse Resp BP BP Pulse Ox 11/08/20 13:45 98.4 F 95 20 115/80 96 11/08/20 11:37 97.8 F 82 20 92/60 98 11/08/20 08:00 98.2 F 82 20 116/73 97 11/08/20 05:45 99.3 F 91 16 109/71 Weight Admit Weight 66 lb 0.448 oz Weight 66 lb 0.455 oz Result Diagrams: 11/08/20 10:34 11/08/20 10:34 Additional Labs: Accuchecks 11/08/20 11/08/20 11/07/20 11:02 05:48 20:40 POC Glucose 146 H 204 H 260 H 11/07/20 17:06 POC Glucose 187 H Hospitalist ROS - Review of Systems Cardiovascular: denies: chest pain, palpitations, orthopnea, paroxysmal noc. dyspnea, edema, light headedness, other Gastrointestinal: denies: nausea, vomiting, abdominal pain, diarrhea, constipa tion, melena, hematochezia, other Genitourinary: denies: dysuria, frequency, incontinence, hematuria, retention, other - Medication Medications: Active Medications Generic Name Dose Route Start Last Admin Trade Name Freq PRN Reason Stop Dose Admin Hydrocodone Bitart/Acetaminophen 1 tab 11/05/20 16:35 11/08/20 15:09 Hydrocodone/Acetaminophen 5/325 Mg Tablet PO 1 tab Q6H PRN Administration Moderate Pain (4-6) Enoxaparin Sodium 30 mg 11/05/20 09:00 11/08/20 08:47 Enoxaparin Sodium 30 Mg/0.3 Ml Syringe SC 30 mg 0900 PRIMITIVO Administration Glipizide 5 mg 11/07/20 16:30 11/08/20 08:47 Glipizide 5 Mg Tab PO Not Given BID-AC PRIMITIVO Insulin Glargine 10 units/ 0.1 mls @ 0 mls/hr 11/07/20 09:00 11/08/20 08:48 Miscellaneous Medication SC Not Given QAM [facility] Ceftriaxone Sodium 2 gm/ 100 mls @ 200 mls/hr 11/07/20 11:00 11/08/20 11:11 Sodium Chloride IVPB 100 mls 1100 PRIMITIVO Administration Insulin Human Regular 0 units 11/05/20 06:29 11/07/20 21:31 Insulin Regular 300 Units/3 Ml Vial SC 6 unit .MODERATE SLIDING SC PRN Administration Moderate Correctional Scale Lisinopril 2.5 mg 11/06/20 09:00 11/08/20 08:43 Lisinopril 2.5 Mg Tab PO 2.5 mg DAILY PRIMITIVO Administration Metformin HCl 500 mg 11/06/20 09:00 11/08/20 08:41 Metformin 500 Mg Tab PO 500 mg BID PRIMITIVO Administration Morphine Sulfate 2 mg 11/05/20 03:44 11/07/20 14:41 Morphine 2 Mg/Ml Vial SLOW IVP 2 mg Q4H PRN Administration Pain Polyethylene Glycol 17 gm 11/08/20 09:00 11/08/20 08:44 Polyethylene Glycol 3350 17 Gm Packet PO Not Given DAILY PRIMITIVO - Exam Neck: negative: supple, symmetric, no JVD, no thyromegaly, no lymphadenopathy, no carotid bruit, JVD Heart: negative: RRR, no murmur, no gallops, no rubs, normal peripheral pulses, irregular, diminshed peripheral pulses, murmur present, II/IV, III/IV Respiratory: negative: CTAB, no wheezes, no rales, no ronchi, normal chest expansion, no tachypnea, normal percussion, rales, rhonchi, tachypneic, wheezes Gastrointestinal: negative: soft, non-tender, non-distended, normal bowel sounds, no palpable masses, no hepatomegaly, no splenomegaly, no bruit, no guarding, no rigidity, tender to palpation, distended, diminished bowl sounds, voluntary guarding Hosp A/P (1) Cachexia Code(s): R64 - CACHEXIA Status: Acute (2) Cellulitis and abscess of finger, unspecified Code(s): L03.019 - CELLULITIS OF UNSPECIFIED FINGER; L02.519 - CUTANEOUS ABSCESS OF UNSPECIFIED HAND Status: Acute (3) Sepsis Code(s): A41.9 - SEPSIS, UNSPECIFIED ORGANISM Status: Acute (4) Type 2 diabetes mellitus with hyperglycemia Code(s): E11.65 - TYPE 2 DIABETES MELLITUS WITH HYPERGLYCEMIA Status: Acute - Plan Patient hemoglobin A1c significantly elevated. We will start her on some Lantus. We will stop vancomycin microbiology indicated Streptococcus agalactiae. We will consult infectious disease. Please measure consult for placement. Patient appears severely cachectic. 11/07 we will increase patient's oral antidiabetic medications. Change IV antibiotic ceftriaxone per IDs recommendation. Patient's electrolytes will be replaced. Other studies ordered pending. Patient most likely will go to longterm facility for now. 11/08 we will continue IV antibiotics for now. We will check a TSH. Patient will likely go to longterm facility. We will continue to increase her antidiabetic medications.
[2020-11-08] MEDS: Insulin Regular 300 UNITS/3 ML VIAL SC PRN ×2 (17:51→20:52)
[2020-11-08] MEDS ORDERED: Insulin Glargine 10 UNITS in Pre-Filled Syringe 1 EACH SC SCH (21:00)
[2020-11-08] MEDS ORDERED: Sodium Chloride 0.9% 10 ML ONE (23:37)
[2020-11-09] MEDS: HYDROcodone/Acetaminophen 5/325 mg Tablet PO PRN ×3 (01:04→21:36)
[2020-11-09] MEDS: Insulin Regular 300 UNITS/3 ML VIAL SC PRN ×4 (06:26→21:36)
--- NOTE | 2020-11-09 08:55 | PRG ---
DATE OF SERVICE: 11/08/2020 SUBJECTIVE: The patient was originally scheduled today for incision, drainage, and washout, possible amputation of proximal phalanx, right thumb. She is resting comfortably in bed, and notes significant improvement regarding overall right hand wrist and upper extremity pain. She denies any fevers. She denies any worsening symptoms compared to her previous examination and reports significant improvement. PHYSICAL EXAMINATION: GENERAL: The patient is awake, alert, and oriented to person, place, and time, and resting comfortably in bed. EXTREMITIES: Right upper extremity; the patient's erythema significantly improved and pain and tenderness upon palpation of the right palm is absent on today's examination and also improved compared to previous exam. There is no purulent drainage noted from wound . There is no erythema extending up the wrist and forearm. There is no adenopathy appreciated in the epitrochlear or axillary region. In the right upper extremity, flexor and extensor tendon functions are grossly intact. Active and passive range of motion of fingers and the wrist joint, improved compared to yesterday's exam. LABORATORY DATA: Laboratory results were reviewed and CBC count has trended downwards and now within limits compared to yesterday's CBC which displayed a white count of 22. ASSESSMENT AND PLAN: Postoperative day #3, status post amputation of right thumb at IP joint , debridement, carpal tunnel release, right hand. It seems that the patient has made significant improvement over the last 24 hours. We will cancel her surgery today. She should continue to remain admitted to the medicine service and continue to receive IV antibiotics as per internal medicine consultation recommendations. We will continue with her hand soaks 3 to 4 times daily, 30 to 45 minute minimum and dressing changes can be performed after each soak. I will continue to follow the patient closely during her hospital stay. Job ID: [id number] [facility]
[2020-11-09] MEDS: Lisinopril 2.5 MG TAB PO SCH (09:29)
[2020-11-09] MEDS: Enoxaparin Sodium 30 MG/0.3 ML SYRINGE SC SCH (09:30)
[2020-11-09] MEDS: glipiZIDE 5 MG TAB PO SCH ×2 (09:30→16:26)
[2020-11-09] MEDS: Insulin Glargine 10 UNITS in Pre-Filled Syringe 1 EACH SC SCH (09:30)
[2020-11-09] MEDS: Polyethylene Glycol 3350 17 GM Packet PO SCH (09:31)
[2020-11-09] MEDS: metFORMIN 500 MG TAB PO SCH ×2 (09:32→21:36)
[2020-11-09] MEDS: cefTRIAXone\\ROCEPHIN 2 GM in Sodium Chloride 0.9% 100 ML IVPB SCH (10:55)
[2020-11-09] MEDS: Ibuprofen 200 MG TAB PO PRN (14:02)
--- NOTE | 2020-11-09 15:57 | PDOC.HOSPP ---
- Subjective Encounter Date: 11/09/20 Encounter Time: 15:57 Subjective: Up in bed no complaints. - Objective Vital Signs & Weight: Vital Signs (12 hours) Temp Pulse Resp BP BP Pulse Ox 11/09/20 12:07 98.8 F 88 16 118/77 11/09/20 08:00 98.6 F 90 20 107/67 98 11/09/20 05:00 99 F 86 18 109/71 95 Weight Admit Weight 66 lb 0.448 oz Weight 66 lb 0.455 oz Result Diagrams: 11/08/20 10:34 11/08/20 10:34 Additional Labs: Accuchecks 11/09/20 11/09/20 11/08/20 12:07 06:22 20:39 POC Glucose 188 H 210 H 361 H 11/08/20 17:12 POC Glucose 290 H Hospitalist ROS - Review of Systems Respiratory: denies: cough, dry, shortness of breath, hemoptysis, SOB with excertion, pleuritic pain, sputum, wheezing, other Cardiovascular: denies: chest pain, palpitations, orthopnea, paroxysmal noc. dyspnea, edema, light headedness, other Gastrointestinal: denies: nausea, vomiting, abdominal pain, diarrhea, constipation, melena, hematochezia, other - Medication Medications: Active Medications Generic Name Dose Route Start Last Admin Trade Name Freq PRN Reason Stop Dose Admin Hydrocodone Bitart/Acetaminophen 1 tab 11/05/20 16:35 11/09/20 09:30 Hydrocodone/Acetaminophen 5/325 Mg Tablet PO 1 tab Q6H PRN Administration Moderate Pain (4-6) Enoxaparin Sodium 30 mg 11/05/20 09:00 11/09/20 09:30 Enoxaparin Sodium 30 Mg/0.3 Ml Syringe SC 30 mg 0900 PRIMITIVO Administration Glipizide 5 mg 11/07/20 16:30 11/09/20 09:30 Glipizide 5 Mg Tab PO 5 mg BID-AC PRIMITIVO Administration Insulin Glargine 10 units/ 0.1 mls @ 0 mls/hr 11/07/20 09:00 11/09/20 09:30 Miscellaneous Medication SC 0.1 mls QAM PRIMITIVO Administration Ceftriaxone Sodium 2 gm/ 100 mls @ 200 mls/hr 11/07/20 11:00 11/09/20 10:55 Sodium Chloride IVPB 100 mls 1100 PRIMITIVO Administration Ibuprofen 200 mg 11/05/20 16:35 11/09/20 14:02 Ibuprofen 200 Mg Tab PO 200 mg Q4H PRN Administration Pain Insulin Human Regular 0 units 11/05/20 06:29 11/09/20 12:33 Insulin Regular 300 Units/3 Ml Vial SC 2 unit .MODERATE SLIDING SC PRN Administration Moderate Correctional Scale Lisinopril 2.5 mg 11/06/20 09:00 11/09/20 09:29 Lisinopril 2.5 Mg Tab PO 2.5 mg DAILY PRIMITIVO Administration Metformin HCl 500 mg 11/06/20 09:00 11/09/20 09:32 Metformin 500 Mg Tab PO 500 mg BID PRIMITIVO Administration Morphine Sulfate 2 mg 11/05/20 03:44 11/07/20 14:41 Morphine 2 Mg/Ml Vial SLOW IVP 2 mg Q4H PRN Administration Pain Polyethylene Glycol 17 gm 11/08/20 09:00 11/09/20 09:31 Polyethylene Glycol 3350 17 Gm Packet PO Not Given DAILY RPIMITIVO - Exam Neck: negative: supple, symmetric, no JVD, no thyromegaly, no lymphadenopathy, no carotid bruit, JVD Heart: negative: RRR, no murmur, no gallops, no rubs, normal peripheral pulses, irregular, diminshed peripheral pulses, murmur present, II/IV, III/IV Respiratory: negative: CTAB, no wheezes, no rales, no ronchi, normal chest expansion, no tachypnea, normal percussion, rales, rhonchi, tachypneic, wheezes Hosp A/P (1) Cachexia Code(s): R64 - CACHEXIA Status: Acute (2) Cellulitis and abscess of finger, unspecified Code(s): L03.019 - CELLULITIS OF UNSPECIFIED FINGER; L02.519 - CUTANEOUS ABSCESS OF UNSPECIFIED HAND Status: Acute (3) Sepsis Code(s): A41.9 - SEPSIS, UNSPECIFIED ORGANISM Status: Acute (4) Type 2 diabetes mellitus with hyperglycemia Code(s): E11.65 - TYPE 2 DIABETES MELLITUS WITH HYPERGLYCEMIA Status: Acute - Plan Patient hemoglobin A1c significantly elevated. We will start her on some Lantus. We will stop vancomycin microbiology indicated Streptococcus agalactiae. We will consult infectious disease. Please measure consult for placement. Patient appears severely cachectic. 11/07 we will increase patient's oral antidiabetic medications. Change IV antibiotic ceftriaxone per IDs recommendation. Patient's electrolytes will be replaced. Other studies ordered pending. Patient most likely will go to detention facility for now. 11/08 we will continue IV antibiotics for now. We will check a TSH. Patient will likely go to detention facility. We will continue to increase her antidiabetic medications. 11/09 continue IV antibiotics. Will talk to surgery to see if any additional intervention is required. Patient most likely will go to detention facility.
[2020-11-10] MEDS: Ibuprofen 200 MG TAB PO PRN (00:31)
[2020-11-10] MEDS: HYDROcodone/Acetaminophen 5/325 mg Tablet PO PRN ×3 (04:25→19:54)
[2020-11-10] MEDS: Insulin Regular 300 UNITS/3 ML VIAL SC PRN ×4 (06:26→20:01)
[2020-11-10] MEDS: Lisinopril 2.5 MG TAB PO SCH (09:44)
[2020-11-10] MEDS: metFORMIN 500 MG TAB PO SCH ×2 (09:44→20:01)
[2020-11-10] MEDS: Polyethylene Glycol 3350 17 GM Packet PO SCH (09:44)
[2020-11-10] MEDS: glipiZIDE 5 MG TAB PO SCH ×2 (09:44→16:53)
[2020-11-10] MEDS: Insulin Glargine 10 UNITS in Pre-Filled Syringe 1 EACH SC SCH (09:45)
[2020-11-10] MEDS: Enoxaparin Sodium 30 MG/0.3 ML SYRINGE SC SCH (09:45)
[2020-11-10] MEDS: cefTRIAXone\\ROCEPHIN 2 GM in Sodium Chloride 0.9% 100 ML IVPB SCH (12:01)
--- NOTE | 2020-11-10 19:57 | PDOC.HOSPP ---
- Subjective Encounter Date: 11/10/20 Encounter Time: 09:45 Subjective: patient up in bed no complaints. - Objective Vital Signs & Weight: Vital Signs (12 hours) Temp Pulse Resp BP BP Pulse Ox 11/10/20 19:12 99.2 F 104 H 20 104/66 97 11/10/20 16:00 98.6 F 95 16 102/64 11/10/20 12:00 98.5 F 104 H 20 114/78 11/10/20 09:44 89 Weight Admit Weight 66 lb 0.448 oz Weight 66 lb 0.455 oz I&O: 11/09/20 11/10/20 11/11/20 06:59 06:59 06:59 Intake Total 1935 Output Total 575 Balance 1360 Result Diagrams: 11/08/20 10:34 11/08/20 10:34 Additional Labs: Accuchecks 11/10/20 11/10/20 11/09/20 16:50 06:21 20:39 POC Glucose 191 H 279 H 316 H Hospitalist ROS - Review of Systems Cardiovascular: denies: chest pain, palpitations, orthopnea, paroxysmal noc. dyspnea, edema, light headedness, other Gastrointestinal: denies: nausea, vomiting, abdominal pain, diarrhea, constipation, melena, hematochezia, other Genitourinary: denies: dysuria, frequency, incontinence, hematuria, retention, other - Medication Medications: Active Medications Generic Name Dose Route Start Last Admin Trade Name Freq PRN Reason Stop Dose Admin Acetaminophen 650 mg 11/05/20 03:37 11/10/20 17:01 Acetaminophen 325 Mg Tab PO 650 mg Q4H PRN Administration Headache/Fever/Mild Pain (1-3) Hydrocodone Bitart/Acetaminophen 1 tab 11/05/20 16:35 11/10/20 12:13 Hydrocodone/Acetaminophen 5/325 Mg Tablet PO 1 tab Q6H PRN Administration Moderate Pain (4-6) Enoxaparin Sodium 30 mg 11/05/20 09:00 11/10/20 09:45 Enoxaparin Sodium 30 Mg/0.3 Ml Syringe SC 30 mg 0900 PRIMITIVO Administration Glipizide 5 mg 11/07/20 16:30 11/10/20 16:53 Glipizide 5 Mg Tab PO 5 mg BID-AC PRIMITIVO Administration Insulin Glargine 10 units/ 0.1 mls @ 0 mls/hr 11/07/20 09:00 11/10/20 09:45 Miscellaneous Medication SC 0.1 mls QAM PRIMITIVO Administration Ceftriaxone Sodium 2 gm/ 100 mls @ 200 mls/hr 11/07/20 11:00 11/10/20 12:01 Sodium Chloride IVPB 100 mls 1100 PRIMITIVO Administration Ibuprofen 200 mg 11/05/20 16:35 11/10/20 00:31 Ibuprofen 200 Mg Tab PO 200 mg Q4H PRN Administration Pain Insulin Human Regular 0 units 11/05/20 06:29 11/10/20 16:53 Insulin Regular 300 Units/3 Ml Vial SC 2 unit .MODERATE SLIDING SC PRN Administration Moderate Correctional Scale Lisinopril 2.5 mg 11/06/20 09:00 11/10/20 09:44 Lisinopril 2.5 Mg Tab PO 2.5 mg DAILY PRIMITIVO Administration Metformin HCl 500 mg 11/06/20 09:00 11/10/20 09:44 Metformin 500 Mg Tab PO 500 mg BID PRIMITIVO Administration Morphine Sulfate 2 mg 11/05/20 03:44 11/07/20 14:41 Morphine 2 Mg/Ml Vial SLOW IVP 2 mg Q4H PRN Administration Pain Polyethylene Glycol 17 gm 11/08/20 09:00 11/10/20 09:44 Polyethylene Glycol 3350 17 Gm Packet PO 17 gm DAILY PRIMITIVO Administration - Exam Neck: negative: supple, symmetric, no JVD, no thyromegaly, no lymphadenopathy, no carotid bruit, JVD Heart: negative: RRR, no murmur, no gallops, no rubs, normal peripheral pulses, irregular, diminshed peripheral pulses, murmur present, II/IV, III/IV Respiratory: negative: CTAB, no wheezes, no rales, no ronchi, normal chest expansion, no tachypnea, normal percussion, rales, rhonchi, tachypneic, wheezes Gastrointestinal: negative: soft, non-tender, non-distended, normal bowel sounds, no palpable masses, no hepatomegaly, no splenomegaly, no bruit, no guarding, no rigidity, tender to palpation, distended, diminished bowl sounds, v oluntary guarding Hosp A/P (1) Cachexia Code(s): R64 - CACHEXIA Status: Acute (2) Cellulitis and abscess of finger, unspecified Code(s): L03.019 - CELLULITIS OF UNSPECIFIED FINGER; L02.519 - CUTANEOUS ABSCESS OF UNSPECIFIED HAND Status: Acute (3) Sepsis Code(s): A41.9 - SEPSIS, UNSPECIFIED ORGANISM Status: Acute (4) Type 2 diabetes mellitus with hyperglycemia Code(s): E11.65 - TYPE 2 DIABETES MELLITUS WITH HYPERGLYCEMIA Status: Acute - Plan Patient hemoglobin A1c significantly elevated. We will start her on some Lantus. We will stop vancomycin microbiology indicated Streptococcus agalactiae. We will consult infectious disease. Please measure consult for placement. Patient appears severely cachectic. 11/07 we will increase patient's oral antidiabetic medications. Change IV antibiotic ceftriaxone per IDs recommendation. Patient's electrolytes will be replaced. Other studies ordered pending. Patient most likely will go to retirement facility for now. 11/08 we will continue IV antibiotics for now. We will check a TSH. Patient will likely go to retirement facility. We will continue to increase her antidiabetic medications. 11/09 continue IV antibiotics. Will talk to surgery to see if any additional intervention is required. Patient most likely will go to retirement facility. 11/10 spoke with surgeon no more hand soaks daily dressing with Xeroform and Kerlix. Patient will follow up with the surgeon next week. Spoke with infectious disease recommended oral Keflex every 6 hours for 3 weeks. Per nursing staff alf could not take patient today discharge in a.m.
[2020-11-11] MEDS: Ibuprofen 200 MG TAB PO PRN (01:31)
[2020-11-11] MEDS: HYDROcodone/Acetaminophen 5/325 mg Tablet PO PRN (04:02)
[2020-11-11 04:16] VITALS: BP 103/65
[2020-11-11] MEDS: Insulin Regular 300 UNITS/3 ML VIAL SC PRN (05:45)
[2020-11-11 08:10] VITALS: TEMP 98.3
[2020-11-11] MEDS: glipiZIDE 5 MG TAB PO SCH (08:11)
[2020-11-11] MEDS: Lisinopril 2.5 MG TAB PO SCH (08:11)
[2020-11-11] MEDS: metFORMIN 500 MG TAB PO SCH (08:11)
[2020-11-11] MEDS: Insulin Glargine 10 UNITS in Pre-Filled Syringe 1 EACH SC SCH (08:12)
[2020-11-11] MEDS: Enoxaparin Sodium 30 MG/0.3 ML SYRINGE SC SCH (08:12)
[2020-11-11] MEDS: Polyethylene Glycol 3350 17 GM Packet PO SCH (08:13)
--- NOTE | 2020-11-11 18:47 | PDOC.DS.DS ---
Provider - Provider Date of Admission: 11/05/20 03:13 Date of Discharge: 11/11/20 Admitting Provider: Celestine Still MD Consultations: Infectious Disease, Other (Hand surgeon) Primary Care Physician: [facility] PCP PROVIDER Course - Hospital Course Hospital Course: Patient is 55-year-old female with diabetes mellitus type 2 presented to the emergency room with swelling and redness of her right thumb. She was recently evaluated in the emergency room and was recommended to get admitted for IV antibiotics however she had refused. Her WBC counts in the emergency room was 21,000 with left shift as well as temperature of 100.5 with tachycardia. Please refer to the history and physical for further details The patient was admitted to the hospital with a diagnosis of sepsis along with cellulitis and abscess of her finger. She was started on broad-spectrum antibiotics. 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 She also had a CT scan of the chest abdomen and pelvis that was consistent with constipation without any pneumonia. Her cultures were positive for group B streptococcus. Infectious disease recommended Keflex 500 mg 4 times daily for next 3 weeks. She appears stable for [facility]. She was extensively counseled on diabetes mellitus type 2. Final diagnosis: Sepsis due to cellulitis and abscess of the right thumb requiring surgical intervention Generalized weaknessmultifactorial Diabetes mellitus type 2 Severe protein calorie malnutrition with cachexia Reactive thrombocytosis Hyponatremia Hypokalemia Hypomagnesemia Hypophosphatemia Physical deconditioning Resuscitation Status: 11/05/20 03:37 Resuscitation Status Routine Resuscitation Status: FULL: Full Resuscitation - Labs Lab Results: 11/08/20 10:34 11/08/20 10:34 Abnormal Lab Results - Last 48 hrs 11/11/20 05:55: Vitamin B12 1322 H Microbiology - Entire Visit 11/05/20 04:29 Venous blood - Left Arm Blood Culture - Final NO GROWTH IN 5 DAYS 11/05/20 04:13 Venous blood - Left Arm Blood Culture - Final NO GROWTH IN 5 DAYS 11/05/20 14:31 Thumb - Right Bacterial Culture - Final Streptococcus agalactiae Gp. B Presumptive Alesia albicans 11/05/20 14:31 Thumb - Right Anaerobic Culture - Final No growth. 11/05/20 14:30 Thumb - Right Bacterial Culture - Final Streptococcus agalactiae Gp. B Presumptive Alesia albicans 11/05/20 14:30 Thumb - Right Anaerobic Culture - Final No growth. 11/05/20 14:31 Thumb - Right Direct Acid Fast Bacilli Smear - Final 11/05/20 14:31 Thumb - Right Acid Fast Bacilli Smear - Pending 11/05/20 14:31 Thumb - Right Acid Fast Bacilli Culture - Preliminary Specimen has been received and culture in progress. No Growth to date. - Physical Exam Vitals: Vital Signs (12 hours) Temp Pulse Resp BP Pulse Ox 11/11/20 08:11 98 11/11/20 08:07 98.3 F 98 20 103/65 96 Weight Admit Weight 66 lb 0.448 oz Weight 66 lb 0.455 oz Physical Exam: The patient was seen and examined on the day of discharge. Plan - Discharge Medications Prescriptions: Saccharomyces Boulardii [Florastor] 250 mg PO DAILY #30 capsule Cephalexin [Keflex] 500 mg PO Q6H #56 cap Home Medications: Medication Instructions Recorded Confirmed Type Insulin Glargine,Hum.Rec.Anlog 2 units SQ ASDIR 11/05/20 11/05/20 History [Toujeo Max Solostar] metFORMIN [Glucophage] 500 mg PO BID 11/05/20 11/05/20 History Cephalexin [Keflex] 500 mg PO Q6H #56 cap 11/10/20 Rx Insulin Glargine [Lantus Vial] 10 units SC QAM vial 11/10/20 Rx Lisinopril [Zestril] 2.5 mg PO DAILY tab 11/10/20 Rx Polyethylene Glycol 3350 [Miralax] 17 gm PO DAILY pk 11/10/20 Rx Saccharomyces Boulardii [Florastor] 250 mg PO DAILY #30 capsule 11/10/20 Rx glipiZIDE [Glucotrol] 5 mg PO BID-AC tab 11/10/20 Rx Allergies: No Known Drug Allergies Allergy (Verified 11/05/20 05:45) PER ER NOTES - Discharge Instructions Discharge Instructions:: YOU WILL NEED A COLONOSCOPY, MAMMOGRAM AND PAP SMEAR OUTPATIENT. DRESSING CHANGE DAILY WITH XEROFORM AND KERLIX FOCUS: Transition from Acute Care after Discharge GOAL: Successful transition to care in the community YOUR TASKS: (1) review all information outlined in your discharge packet (2) follow any instructions outlined in your discharge packet (3) contact your primary care provider if you have questions or need ad ditional assistance Activity:: Activity as Tolerated Nourishment:: Diabetic Diet - Follow up Plan Referrals: Jose Peck MD [Active] - (NEXT WEEK FOR YOUR RIGHT HAND) PROVIDER,NO PCP [Primary Care Provider] - 7 Days Disposition: HOME Quality - Care Measures CORE MEASURES:: N/A
[2020-11-13 12:37] LABS: Fungus Culture Final report (.); Fungus Culture Result 1 Candida albicans (.)
[2020-12-05 07:15] LABS: Fungus Culture Final report (.); Fungus Culture Result 1 Candida albicans (.)
== END 2020-11-11 10:09 | disposition home or self-care (01) | DRG 853 ==
LOC: ERS 02:02 → EEVIPCON 03:13 → ERHOLD 03:13 → 3SE 05:41
PROVIDERS: ADMIT Internal Medicine; ATTEND Internal Medicine
PROC: 01N50ZZ Release Median Nerve, Open Approach (ICD-10-PCS; principal; 2020-11-05)
PROC: 0LB70ZZ Excision of Right Hand Tendon, Open Approach (ICD-10-PCS; 2020-11-05)
PROC: 0X6L0Z3 Detachment at Right Thumb, Low, Open Approach (ICD-10-PCS; 2020-11-05)
DX: A41.9 Sepsis, unspecified organism (principal); E43 Unspecified severe protein-calorie malnutrition; L03.113 Cellulitis of right upper limb; R64 Cachexia; E11.52 Type 2 diabetes mellitus with diabetic peripheral angiopathy with gangrene; E87.1 Hypo-osmolality and hyponatremia; Z68.1 Body mass index [BMI] 19.9 or less, adult; L02.511 Cutaneous abscess of right hand; M87.9 Osteonecrosis, unspecified; F41.9 Anxiety disorder, unspecified; F31.9 Bipolar disorder, unspecified; F17.210 Nicotine dependence, cigarettes, uncomplicated; E11.65 Type 2 diabetes mellitus with hyperglycemia; K59.00 Constipation, unspecified; G56.01 Carpal tunnel syndrome, right upper limb; Z20.822 Contact with and (suspected) exposure to COVID-19; D47.3 Essential (hemorrhagic) thrombocythemia; E83.42 Hypomagnesemia; E83.39 Other disorders of phosphorus metabolism; E87.6 Hypokalemia
CPT/HCPCS: 36415; 36416; 71260; 74177; 80048; 80053; 80202; 82180; 82525; 82607; 83036; 83605; 83735; 84100; 84207; 84443; 84590; 84630; 85025; 87040; 87070; 87077; 87102; 87116; 87205; 87206; 87389; 87635; 90471; 90715; J0692; J0696; J1100; J1200; J1650; J1815; J2001; J2270; J2405; J2543; J2704; J3010; J3370; J3475; J3480; J3490; Q9967; S0020; U0003